=== PATIENT | female | born 1955 | race Caucasian/White ===

== ENCOUNTER → 2017-04-02 | Outpatient (CLI) | payer OTHER ==
[~2017-04-02] MED LIST: ASPI81TA21 PO; CALC600T14 PO; CHOL400C7 PO; CYAN10004 PO; LEVO100T PO; MULTTAB58 PO; PRAV20TA PO; TIMO0.2530 OPB
--- NOTE | 2017-04-03 14:31 | MAMMOGRAPHY REPORT ---
BILATERAL DIGITAL SCREENING MAMMOGRAM TOMOSYNTHESIS WITH CAD: 04/02/2017 CLINICAL HISTORY: Routine screening. Patient has no complaints. TECHNIQUE: Breast tomosynthesis in addition to standard 2D mammography was performed. Current study was also evaluated with a Computer Aided Detection (CAD) system. COMPARISON: Comparison is made to exams dated: 12/10/2015 mammogram, 12/05/2014 mammogram, 11/02/2013 m ammogram, 09/27/2012 mammogram, 09/26/2011 mammogram, and 09/25/2010 mammogram - [facility] nter. BREAST COMPOSITION: There are scattered areas of fibroglandular density in both breasts. FINDINGS: No suspicious masses, calcifications, or areas of architectural distortion are noted in ei ther breast. There has been no significant interval change compared to prior exams. Scattered bilater al benign-appearing calcifications are not significantly changed. Circumscribed benign-appearing mas s in the left central breast is stable. Other small circumscribed benign-appearing masses are noted bilaterally, best seen on the tomosynthesis images, which are considered benign given the multiplicit y and bilaterality and likely represent cysts. IMPRESSION: ACR BI-RADS CATEGORY 2: BENIGN There is no mammographic evidence of malignancy. A 1 year screening mammogram is recommended. The pa tient will receive written notification of the results. Approximately 10% of breast cancers are not detected with mammography. A negative mammographic report should not delay biopsy if a clinically suggestive mass is present. Mayte Lovell M.D. /:04/02/2017 15:47:21 [facility]: Sil SPEARS,R, M, [facility] letter sent: Normal 1/2 BI-RADS Code: ACR BI-RADS Category 2: Benign
== END | disposition home or self-care (01) ==
LOC: C.MAMM 14:53
PROVIDERS: ATTEND Family Medicine
DX: Z12.31 Encounter for screening mammogram for malignant neoplasm of breast (principal)

== ENCOUNTER 2019-09-21 05:02 | Inpatient (IN) ==
--- NOTE | 2019-09-15 10:28 | PAT Medication Instructions ---
Medication Instructions Date of Service September 15, 2019 Home Medications aspirin [Aspir-81] 81 mg PO QAM carbidopa-levodopa 1 tab PO BID coenzyme Q10 [CoQ-10] 100 mg PO UD PRN 0 dulaglutide [Trulicity] 1.5 mg SUBCUT WK gabapentin 200 mg PO BID lamotrigine 50 mg PO QAM latanoprost 1 drp OPHTHALMIC (EYE) BID levothyroxine 100 mcg PO QAM meloxicam [Mobic] 15 mg PO UD PRN metoprolol succinate 25 mg PO QAM propafenone 225 mg PO QAM rosuvastatin 5 mg PO HS Continue as directed dulaglutide [Trulicity] 1.5 mg SUBCUT WK ASK your surgeon for instructions meloxicam [Mobic] 15 mg PO UD PRN STOP taking 2 weeks before surgery (or as soon as possible if surgery is within 2 weeks) coenzyme Q10 [CoQ-10] 100 mg PO UD PRN 0 DO NOT take the morning of surgery lamotrigine 50 mg PO QAM Take morning of surgery With a small sip of water, OTHERWISE NOTHING TO EAT OR DRINK AFTER MIDNIGHT: aspirin [Aspir-81] 81 mg PO QAM carbidopa-levodopa 1 tab PO BID gabapentin 200 mg PO BID lamotrigine 50 mg PO QAM latanoprost 1 drp OPHTHALMIC (EYE) BID levothyroxine 100 mcg PO QAM metoprolol succinate 25 mg PO QAM propafenone 225 mg PO QAM Take evening before surgery carbidopa-levodopa 1 tab PO BID gabapentin 200 mg PO BID latanoprost 1 drp OPHTHALMIC (EYE) BID rosuvastatin 5 mg PO HS Other Notes If you have any questions please call us at [phone] or [phone] or [phone] or [phone]
--- NOTE | 2019-09-16 08:08 | History & Physical Report ---
Date of Service September 16, 2019 date of surgery: 09-21-19 Assessment & Plan (1) Arthritis of right knee: Further care discussed with patient and at this point in time she has failed conservative measures and would like to proceed with a Right total knee replacement. Plan on discharge will be home with home health physical therapy. DVT prophalaxis with TEDs, SCDs and will also place on aspirin 81 mg p.o. b.i.d. for a month postop. Patient will have follow up appointment in our office two w eeks post op for staple/suture removal and re-evaluation. Patient otherwise has no other questions or concerns. History of Present Illness Chief Complaint: Right knee pain Primary Care Provider: Donal Larson Ms Bowden is a 64 year old female who complains of Right knee pain, presents for pre-op evaluation prior to a Right total knee replacement by dr Gomez at [facility]. She complains of pain, crepitus, decreased range of motion, instability and stiffness in the Right knee. she states that the symptoms have been chronic and non-traumatic. she states that the symptoms occur constantly with intermittent worsening. Currently the patient states that the symptoms are moderate-severe. The pain is described as aching, sharp and throbbing. The symptoms occur continuously. The symptoms are aggravated by ascending stairs, daily activities, first steps while awake walking. Prior NSAIDs include IBU and Aleve. She has been treated with previous cortisone injections and visco injections in the past without much relief, most recent was Euflexxa in March 2019. Allergies Allergy/AdvReac Type Severity Reaction Status Date / Time Srmkbvc-Iel-Cnv Reductase AdvReac Unknown Joint Pain Verified 09/14/19 10:06 Inhibitor Home Medications Home Medications Medication Instructions Recorded Confirmed Type aspirin [Aspir-81] 81 mg PO QAM 09/14/19 09/14/19 History carbidopa-levodopa 1 tab PO BID 09/14/19 09/14/19 History coenzyme Q10 [CoQ-10] 100 mg PO UD PRN 09/14/19 09/14/19 History dulaglutide [Trulicity] 1.5 mg SUBCUT WK 09/14/19 09/14/19 History gabapentin 200 mg PO BID 09/14/19 09/14/19 History lamotrigine 50 mg PO QAM 09/14/19 09/14/19 History latanoprost 1 drp OPHTHALMIC (EYE) BID 09/14/19 09/14/19 History levothyroxine 100 mcg PO QAM 09/14/19 09/14/19 History meloxicam [Mobic] 15 mg PO UD PRN 09/14/19 09/14/19 History metoprolol succinate 25 mg PO QAM 09/14/19 09/14/19 History propafenone 225 mg PO QAM 09/14/19 09/14/19 History rosuvastatin 5 mg PO HS 09/14/19 09/14/19 History Past Med/Surg History Medical History Abnormal EEG Abnormal MRI Borderline high blood pressure Borderline high cholesterol Diabetes History of anesthesia reaction BP WENT LOW WITH ONE SURGERY IN PAST LEG CRAMPS AFTER SURGERY History of atrial fibrillation DX 2013 ...CARDIAC ABLATION Sleep apnea "MILD" - NO MACHINE Tremor L FOOT MOVES UP LEFT SIDE AT TIMES Surgical History History of cardiac radiofrequency ablation MAY 2014 - RESOLVED AFIB History of cholecystectomy History of colonoscopy History of neck surgery CAGE, LIMITED ROM BOTH SIDES (MILD) History of ovarian cystectomy History of surgery on arm L Family History Sister Family history of diabetes mellitus Social History Preferred Language: Nepali Communication Ability: Effective Communication Ability Comment: NEEDS READING GLASSES Paper Coater Required: No Beliefs That Will Affect Care: None Current Living Situation: Spouse Other Information That Helps Us Care for You: No Feels Safe at Home: Yes Smoking Status: Never smoker Do You Dip or Chew Tobacco: No ; Hx Alcohol Use: Yes Alcohol type: wine Hx Substance Use: No Review of Systems Review of Systems: All systems reviewed & are unremarkable except as noted in HPI & below Constitutional: no fever, no chills and no sweats Respiratory: no cough and no dyspnea Cardiovascular: no chest pain, no dyspnea and no orthopnea Gastrointestinal: no abdominal pain, no nausea and no vomiting Musculoskeletal: as per Subjective / HPI Physical Exam Physical Exam: Ht: 5'1" Wt: 78kg BP: 124/76 Pulse: 76 Constitutional: WD/WN, vitals as above no acute distress Respiratory: normal respiratory effort, lungs clear to auscultation no respiratory distress, no labored breathing and does not use accessory muscles Cardiovascular: RRR, no murmur, no edema Gastrointestinal (Abdomen): normal bowel sounds, soft, nontender, no hepatosplenomegaly Musculoskeletal: Knee: + knee abnormal to inspection (Right knee), + effusion (+1 effusion), + limited ROM of knee (ROM 0/3/110), + knee ROM with crepitation, + joint line tenderness (medial joint line) and + Ever's sign positive; no deformity, no skin erythema, no ecchymosis, no valgus laxity, no varus laxity, anterior drawer test negative, Aureliano's sign negative and pivot shift test negative Results & Data Diagnostic Findings right knee xray from December 2018 showing complete loss joint space medial compartment with overall varus alignment, there is also narrowing of the lateral compartment and patellofemoral joint. there is osteophyte formation, subchondral sclerosis noted, no loose bodies, no acute bony pathology. overall impression tricompartmental degenerative changes to the right knee.
--- NOTE | 2019-09-16 14:16 | Anesthesiology Consultation ---
Date of Service September 16, 2019 Assessment & Plan (1) Encounter for pre-operative examination: - Cardiology: 08/30/19: Stress test reviewed. "I see no cardiac contraindication to proceeding on with the right knee replacement. I would recommend perioperative cardiac monitoring." - PCP: 09/15/19: "Medical problems stable. Should tolerate surgery well. Patient cleared for planned surgery." Chart Review Chart Review: Acceptable Risk for Surgery and Patient seen in Pre Admission Testing Teaching & Discussion Pre-Anesthesia Teaching/Discussion Notes: Instructed NPO after midnight before surgery,except medications with 15 cc of water. Medication instructions provided according to the PAT guidelines. History Surgery Operation Date: 09/21/19 07:00 Proposed Procedures p Right Total Knee Arthroplasty - Link Gomez DO Height/Weight Height: 5 ft 1 in Weight: 82.5 kg Allergies Allergy/AdvReac Type Severity Reaction Status Date / Time Jikxxqf-Pgm-Cuq Reductase AdvReac Unknown Joint Pain Verified 09/14/19 10:06 Inhibitor Medications Home Medications Medication Instructions Recorded Confirmed Last Taken aspirin [Aspir-81] 81 mg PO QAM 09/14/19 09/14/19 Unknown carbidopa-levodopa 1 tab PO BID 09/14/19 09/14/19 Unknown coenzyme Q10 [CoQ-10] 100 mg PO UD PRN 09/14/19 09/14/19 Unknown dulaglutide [Trulicity] 1.5 mg SUBCUT WK 09/14/19 09/14/19 Unknown gabapentin 200 mg PO BID 09/14/19 09/14/19 Unknown lamotrigine 50 mg PO QAM 09/14/19 09/14/19 Unknown latanoprost 1 drp OPHTHALMIC (EYE) BID 09/14/19 09/14/19 Unknown levothyroxine 100 mcg PO QAM 09/14/19 09/14/19 Unknown meloxicam [Mobic] 15 mg PO UD PRN 09/14/19 09/14/19 Unknown metoprolol succinate 25 mg PO QAM 09/14/19 09/14/19 Unknown propafenone 225 mg PO QAM 09/14/19 09/14/19 Unknown rosuvastatin 5 mg PO HS 09/14/19 09/14/19 Unknown Past Medical History Medical History Borderline high blood pressure Borderline high cholesterol Diabetes History of atrial fibrillation s/p cardiac ablation (2013) Obesity Sleep apnea "mild"- no device recommended per patient Tremor Left foot/left sided (occasional) Exercise / Class Metabolic Activity III < 4 Walking/Shop/Light housework Past Family History Family History Sister Family history of diabetes mellitus Past Surgical History Surgical History History of cardiac radiofrequency ablation 2013 History of cholecystectomy History of colonoscopy History of neck surgery + CAGE History of ovarian cystectomy History of surgery on arm L Past Anesthesia History Other (single episode of post-op hypotension. Post-op leg cramps.) Social History Smoking Status: Never smoker Do You Dip or Chew Tobacco: No Hx Alcohol Use: Yes Alcohol type: wine alcohol intake frequency: holidays/special occasions only Hx Substance Use: No substance use type: does not use Review of Systems Patient denies chest pain, shortness of breath, cough, wheezing, palpitations. Physical Exam Vital Signs VITALS BP 122/79 P 75 TEMP 98.7 SP02 95%RA RESP 18 PHYSICAL Full neck and c-spine range of motion. Full TMJ range of motion. TMD 4 finger breaths Mallampati Score 3 Dentition: molar chipped, upper front caps Lungs: clear throughout to auscultation Cardiac: regular rate and rhythm, no murmurs noted Spine: normal Carotid arteries: negative bruit Extremities: no edema Testing Laboratory Results 09/16/19 14:32 09/16/19 14:32 PT 10.3 Seconds (9.0-12.0) 09/16/19 14:32 INR 1.0 (0.9-1.1) 09/16/19 14:32 APTT 25.1 Seconds (21.0-31.0) 09/16/19 14:32 Hemoglobin A1c 6.1 % (4.5-5.6) H 09/16/19 14:32 Urine Color Yellow 09/16/19 Unknown Urine Appearance Clear (Clear) 09/16/19 Unknown Urine pH 5.0 (4.5-7.5) 09/16/19 Unknown Ur Specific [place] 1.013 (1.000-1.030) 09/16/19 Unknown Urine Protein Negative (Negative) 09/16/19 Unknown Urine Glucose (UA) Negative (Negative) 09/16/19 Unknown Urine Ketones Negative (Negative) 09/16/19 Unknown Urine Nitrite Negative (Negative) 09/16/19 Unknown Ur Leukocyte Esterase Negative (Negative) 09/16/19 Unknown Blood Type B Negative 09/16/19 14:32 Antibody Screen NEGATIVE 09/16/19 14:32 Electrocardiogram Date: 09/16/19 SR with first degree AVB at 75bpm. Chest X-Ray Date: 09/16/19 Findings: + NAD Echocardiogram Date: 05/09/19 EF 55 to 60%. No regional wall motion abnormalities. Done sclerotic changes in aortic and mitral valve leaflets. Mild to at most low moderate aortic valve insufficiency. Mild mitral and tricuspid valvular insufficiency. Minimal to small amount pericardial fluid. PASP 30 mmHg. Somewhat limited study with a limited acoustic window. Stress Test Date: 08/30/19 Type: nuclear (Lexiscan) Normal myocardial perfusion SPECT images without evidence of pharmacologically induced ischemia. LVEF 60%. No significant ST-T wave changes associated with Lexiscan infusion.
--- NOTE | 2019-09-16 14:55 | XRay Report ---
XR chest Pre-admission PA/Lat CLINICAL HISTORY: Preoperative chest COMPARISON STUDY: No previous studies for comparison. FINDINGS: The cardiac and mediastinal contours are normal. There is no evidence of focal pulmonary co nsolidation. There is no evidence of failure. No pleural effusions are visualized.[Postsurgical mauricio es are present within the cervical spine. IMPRESSION: No active disease in the chest. ACT 112: Negative or not required by law. Electronically signed by: Jose Elias Tierney M.D. 09/16/2019 2:54 PM
[2019-09-16 15:33] LABS: Basophils # (auto) 0.02 K/uL (0-0.2); Basophils % (auto) 0.3 %; Eosinophils # (auto) 0.16 K/uL (0-0.5); Eosinophils % (auto) 2.2 %; Hematocrit (blood only) 42.1 % (37-47); Hemoglobin 14.3 g/dL (12.0-16.0); Immature Granulocytes # (auto) 0.01 K/uL (0.00-0.02); Immature Granulocytes % (auto) 0.1 %; Lymphocytes # (auto) 2.12 K/uL (1.2-3.4); Lymphocytes % (auto) 29.5 %; Mean Corpuscular Hemoglobin 30.4 pg (25-34); Mean Corpuscular Volume 89.4 fL (80-100); Mean Platelet Volume 9.8 fL (7.4-10.4); Monocytes # (auto) 0.74 K/uL (0.11-0.59); Monocytes % (auto) 10.3 %; Neutrophils # (auto) 4.14 K/uL (1.4-6.5); Neutrophils % (auto) 57.6 %; Platelet Count 273 K/uL (130-400); RDW Coefficient of Variation 13.1 % (11.5-14.5); RDW Standard Deviation 42.5 fL (36.4-46.3); Red Blood Count 4.71 M/uL (4.2-5.4); White Blood Count 7.19 K/uL (4.8-10.8)
[2019-09-16 15:34] LABS: Appearance Urine Clear (Clear); Bilirubin Urine Negative (Negative); Blood Urine Negative (Negative); Color Urine Yellow; Glucose Urine UA Negative (Negative); Ketones Urine Negative (Negative); Leukocyte Esterase Urine Negative (Negative); Nitrite Urine Negative (Negative); Protein Urine Negative (Negative); Specific Gravity Urine 1.013 (1.000-1.030); Urobilinogen Urine Negative (Negative)
[2019-09-16 15:39] LABS: Albumin Level 3.8 gm/dl (3.4-5.0); BUN Creatinine Ratio 21.1 (10-20); Creatinine Clr Calc Pharmacy 67.4 ml/min; Est GFR (Non-African American) 76.8; Potassium 4.2 mmol/L (3.5-5.1)
[2019-09-16 15:44] LABS: Partial Thromboplastin Ratio 0.9; Partial Thromboplastin Time 25.1 Seconds (21.0-31.0); Prothrombin Time 10.3 Seconds (9.0-12.0)
--- NOTE | 2019-09-16 17:28 | Electrocardiogram Report ---
Test Reason : Blood Pressure : / mmHG Vent. Rate : 075 BPM Atrial Rate : 075 BPM P-R Int : 210 ms QRS Dur : 080 ms QT Int : 382 ms P-R-T Axes : 067 042 059 degrees QTc Int : 426 ms Sinus rhythm with 1st degree A-V block Otherwise normal ECG When compared with ECG of 08-APR-2012 17:41, MT interval has increased Confirmed by Francisco Kerns ([id number]) on 09/16/2019 5:27:59 PM Referred By: Link Gomez Confirmed By:Mahamed Kerns
[2019-09-17 06:35] LABS: Estimated Average Glucose 128 mg/dl; Hemoglobin A1C 6.1 % (4.5-5.6)
[2019-09-21] MEDS ORDERED: TRANEXAMIC ACID 1,000 MG **IV Intra-op IV SCH (06:00)
[2019-09-21] MEDS ORDERED: METOCLOPRAMIDE HCL 10 MG TABLET PO SCH (06:00)
[2019-09-21] MEDS ORDERED: dexAMETHasone 4 MG TAB PO SCH (06:00)
[2019-09-21] MEDS ORDERED: LR 15ML/HR IV SCH (06:00)
[2019-09-21] MEDS ORDERED: ACETAMINOPHEN 500 MG TAB PO SCH (06:00)
[2019-09-21] MEDS ORDERED: GABAPENTIN 300 MG CAP PO SCH (06:00)
[2019-09-21] MEDS ORDERED: TRANEXAMIC ACID 1,000 MG **IV Pre-op IV SCH (06:00)
[2019-09-21] MEDS ORDERED: ROPIVACAINE 0.5% HCL/PF 150 MG, BUPIVACAINE 0.5% MPF 30 ML, EPINEPHrine 30MG/30ML (OR U... INSTIL SCH (06:00)
[2019-09-21] MEDS ORDERED: FAMOTIDINE 20 MG TAB PO SCH (06:00)
[2019-09-21] MEDS ORDERED: VANCOMYCIN HCL 1,250 MG in SODIUM CHLORIDE 0.9% 250 ML IV SCH (06:00)
[2019-09-21] MEDS ORDERED: CeleBREX 200 MG CAP PO SCH (06:00)
[2019-09-21] MEDS ORDERED: LR 500ML BOLUS, THEN 15ML/HR IV SCH (06:00)
[2019-09-21] MEDS ORDERED: BUPIVACAINE 0.5 % 5 MG/1 ML PF 10ML VIAL ONE (06:20)
[2019-09-21] MEDS ORDERED: DEXAMETHASONE SOD INJ 4 MG/ML VIAL ONE (06:20)
[2019-09-21] MEDS ORDERED: BUPIVACAINE/EPINEPHRINE 0.25% 1:200,000 30 ML VIAL ONE (06:20)
[2019-09-21] MEDS ORDERED: BACITRACIN INJ 50,000 UNIT VIAL ONE (06:28)
[2019-09-21] MEDS ORDERED: ORTHO JOINT ANESTHETIC ONE (06:28)
[2019-09-21] MEDS ORDERED: MIDAZOLAM HCL 1 MG/ML 2ML VIAL ONE ×2 (06:48→06:49)
[2019-09-21] MEDS ORDERED: fentaNYL citrate 100 MCG/2 ML VIAL ONE (06:52)
[2019-09-21] MEDS ORDERED: ePHEDrine sulfate 50 MG/ML AMP IV PRN (06:53)
[2019-09-21] MEDS ORDERED: ATROPINE SULFATE 0.1 MG/ML 10ML SYR IV PRN (06:53)
[2019-09-21] MEDS ORDERED: ONDANSETRON INJ 2 MG/ML 2 ML VIAL IV PRN ×2 (06:53→09:52)
[2019-09-21] MEDS ORDERED: fentaNYL citrate 100 MCG/2 ML VIAL IV PRN (06:53)
--- NOTE | 2019-09-21 07:01 | History & Physical Bridge Note ---
Date of Service September 21, 2019 History & Physical Bridge Note I have examined the patient, reviewed the History & Physical and in the interval since the performance of the History & Physical I have noted the following changes of clinical significance: no changes noted
[2019-09-21] MEDS ORDERED: LIDOCAINE HCL 2% 2 ML VIAL/AMP(20MG/ML) INFIL ONE (07:29)
[2019-09-21] MEDS ORDERED: ONDANSETRON INJ 2 MG/ML 2 ML VIAL ONE (07:29)
[2019-09-21] MEDS ORDERED: PROPOFOL IV EMULSION 10 MG/ML 20 ML VIAL IV ONE (07:29)
--- NOTE | 2019-09-21 08:12 | Operative Report ---
Post Operative Report Pre & Post Diagnosis Operation Date: 09/21/19 07:00 Pre-Op Diagnosis: Right Knee Osteoarthritis Post-Op Diagnosis: Right Knee Osteoarthritis I identified the patient and participated in the time-out.: Yes Procedure Operation Date: 09/21/19 07:00 Actual Procedures p Right Total Knee Arthroplasty, Cemented(Right) utilizing [employer] journey to non-block total knee arthroplasty size 3 femur to tibia 9 polyethylene 29 oval patella- Link Gomez DO Surgeon Link Gomez DO Dehydrator Operator MELISSA Botello Estimated Blood Loss 5 Findings Consistent with Post-Op Diagnosis Patient has severe end-stage tricompartmental degenerative joint disease varus alignment 10 degree flexion contracture subchondral cystic changes marginal osteophytes moderate to large effusion no response to conservative management Specimens Bone and cartilage Drains Medium bore Hemovac Anesthesia Type MAC Regional Complications none Disposition Accompanied Patient To Recovery: No Disposition: Recovery Room Indications Patient presents after failed attempted conservative management clinic physical therapy anti-inflammatories relative rest activity modification corticosteroid injections Visco supplementation as above intraoperative findings noted times surgery. Description of Procedure After proper prepping and draping of the Right lower extremity anterior midline incision was made over the region of the extensor extensor mechanism after meticulous hemostasis was obtained and maintained in subcutaneous tissues a medial parapatellar incision was made The patella was subluxed lateralward the medial lateral gutter were cleaned from any hypertrophic synovitis and scar tissue of the distal femoral block was placed and the distal femoral osteotomy cut was made subsequently the chamfers anterior and posterior osteotomy cuts were made utilizing the 4-in-1 block the tibia was subsequently subluxed anteriorward medial and ateral meniscal remnants were excised in their entirety remnants of the anterior and posterior cruciate ligaments were excised in their entirety excellent exposure of the proximal tibia was obtained the tibial osteotomy guide was placed on the proximal tibial osteotomy cut was made once again the knee was irrigated with copious amounts of sterile saline solution the patella was subsequently everted lateralward thickened scar tissue around the patella was removed the patella was subsequently cut utilizing a freehand technique and was drilled prepared for final preparation and placement of patella socially flexion-extension gaps were checked and the equal and symmetric trials were placed to the appropriate femoral and tibial trials with poly-spacer being placed for equal flexion and extension gaps and full range of motion including extension to 0 and flexion to 140 the trial components after having been taken to recovery range of motion was subsequently removed meticulous hemostasis was obtained and maintained subsequently a knee block injection of joint cocktail including ropivacaine 0.5% 150 mg. Bupivacaine 0.5% epinephrine 1-200,030 mL's toradol 30 mg dexamethasone 4 mg ketamine 10 mg clonidine 100 micrograms normal saline solution 30 mg was infiltrated into the soft tissues of the posterior knee medial lateral gutters and periosteal synovium special attention was paid to protect neurovascular structures at all times subsequently trial components having been removed the knee was irrigated with sterile saline solution. debris was removed the proximal tibia was subsequently prepared and was made ready for the placement of the tibial component tibial component was also cemented and tamped into position the femoral component was subsequently placed and cemented in the position the patellar component was subsequently cemented in position because hemostasis once again obtained and maintained wound having been thoroughly irrigated with debridement and debridement lavage was performed as well as a medial parapatellar incision closed with #1 Vicryl in interrupted fashion subcutaneous was closed with #2 Vicryl skin was closed with skin clips. PA-C was necessary for prepping and drapping as well as wound closure of deep fascia Sub cutaneous tissue and skin and was necessary for the case. A sterile compressive dressing was placed patient was taken to recovery in stable condition of report dictated by Jason I attest to the content of the Intraoperative Record and any orders documented therein. Any exceptions are noted below. I attest to the content of the Intraoperative Record and any orders documented therein. Any exceptions are noted below.
--- NOTE | 2019-09-21 09:16 | Anesthesiology Progress Note ---
Date of Service September 21, 2019 Anesthesia Post Procedure Vital Signs Vital Signs: Temp Pulse Pulse Resp BP Pulse Ox 09/21/19 09:10 73 19 114/64 97 09/21/19 09:00 72 17 106/56 L 97 09/21/19 08:51 36 C L 79 16 106/66 100 09/21/19 05:54 36.7 C 68 18 146/74 H 95 Pain Intensity Right Knee: Pain Intensity: 3 Transfer of Care Handoff Completed per policy Notes Mental Status: alert / awake / arousable Patient Amnestic to Procedure: Yes Nausea / Vomiting: adequately controlled Pain: adequately controlled Airway Patency, RR, SpO2: stable & adequate BP & HR: stable & adequate Hydration State: stable & adequate Neuraxial Anesthesia: was administered and sensory block is resolving Anesthetic Complications: no major complications apparent
--- NOTE | 2019-09-21 09:42 | XRay Report ---
XR knee RT 1 or 2V routine HISTORY: 64 years-old Female Surgical Post Op right knee total joint arthroplasty. COMPARISON: None available TECHNIQUE: 2 views of the right knee FINDINGS: Right knee total joint arthroplasty and patella resurfacing demonstrates satisfactory alignment. Surg ical drainage catheter is in place. Postoperative swelling and deep tissue air. No acute fracture or opaque foreign body. IMPRESSION: Right knee total joint arthroplasty with expected postoperative findings. ACT 112: Negative or not required by law. The above report was generated using voice recognition software. It may contain grammatical, syntax o r spelling errors. Electronically signed by: Emiliano Davis M.D. 09/21/2019 9:40 AM
[2019-09-21] MEDS ORDERED: bisacodyL 10 MG SUPP PR PRN (09:52)
[2019-09-21] MEDS ORDERED: METOCLOPRAMIDE HCL INJ 5 MG/ML 2 ML VIAL IV PRN (09:52)
[2019-09-21] MEDS ORDERED: MAGNESIUM HYDROXIDE SUSP 30 ML UDC PO PRN (09:52)
[2019-09-21] MEDS ORDERED: NALOXONE HCL 0.4 MG/1 ML VIAL/CARP IV PRN (09:52)
[2019-09-21] MEDS ORDERED: HYDROmorphone INJ 1 MG/ML SYRINGE IV PRN (09:52)
[2019-09-21] MEDS ORDERED: PHARMACY GLYCEMIC MGMT CONSULT PRN (10:15)
[2019-09-21] MEDS ORDERED: GLUCAGON FOR INJ 1 MG VIAL IM PRN (10:30)
[2019-09-21] MEDS ORDERED: GLUCOSE 10 TABS/TUBE PO PRN (10:30)
[2019-09-21] MEDS ORDERED: CARBOHYDRATES FOR HYPOGLYCEMIA PO PRN (10:30)
[2019-09-21] MEDS ORDERED: DEXTROSE 50% 50 ML SYRINGE IV PRN (10:30)
[2019-09-21] MEDS ORDERED: GLUCOSE 40% GEL 15 GM TUBE PO PRN (10:30)
--- NOTE | 2019-09-21 10:35 | Pharmacy Report ---
Glycemic Control Consultation - Date of Service September 21, 2019 - Scope Scope: Glycemic Pharmacist consulted by Henry Diane on 09/21 for glycemic control and to write orders per [facility] inpatient glycemic control protocol - Objective Weight: 81.76 kg Accuchecks BSG (last 24hrs): 09/21/19 05:48 POC Glucose 138 H HbA1c: Hemoglobin A1c 6.1 % (4.5-5.6) H 09/16/19 14:32 - Recent Pertinent Medications Outpatient Anti-diabetic Regimen: * trulicity 1.5 mg qweekly * A1c = 6.1 % 09/16/19 Risk Factors for Insulin Resistance: * Steroids: DXM 4 mg iv, DXM 8 mg po x 1 * Recent Surgery: POD 0 * Diet: T2DM - Assessment & Plan Assessment & Plan: ASSESSMENT: * 64 year old female now s/p knee arthroplasty. Type 2 diabetic managed on Trulicity at home * Pharmacy consulted for glycemic management. Patient did receive steroids preop/intraop therefore expect steroid induced hyperglycemia * Will utilize basal/bolus insulin postop for glycemic control * Lunch BSG elevated at 284 mg/dL - after discussion with nurse patient had just recently eaten breakfast therefore level falsely elevated / patient did eat about 26 gm of carbs therefore adjusted CF slightly to make up for missed insulin PLAN FOR INPATIENT GLYCEMIC CONTROL: * Holding outpatient diabetes medications * Basal insulin * NPH 15 units (~0.2 units/kg) x 1 * Bolus insulin * NovoLog per scale ACHS or Q6hrs while NPO * Goal Range: Low 110 mg/dL - High 140 mg/dL * Correction Factor: 25 mg/dL/unit * Nutritional / Prandial insulin per carb ratio of 1 unit per 8 grams CHO consumed * Please note that the plan above was derived based on current level of insulin resistance and hospital stress. These recommendations are appropriate for inpatient admission only. Plan of care upon discharge will need to be reassessed to avoid potential outpatient hypo/hyperglycemia. Thank you.
[2019-09-21] MEDS: SODIUM CHLORIDE 0.9% 1000ML 1,000 ML IV SCH ×2 (10:53→21:04)
[2019-09-21] MEDS: GABAPENTIN 100 MG CAP PO SCH ×2 (10:53→21:09)
[2019-09-21] MEDS: CARBIDOPA/LEVODOPA 25/100MG EXT REL TAB PO SCH ×2 (10:54→21:09)
[2019-09-21] MEDS: LATANOPROST 0.005% OP SOLN 2.5 ML BTL OP SCH ×2 (10:54→21:12)
[2019-09-21] MEDS: MULTIVITAMIN TAB PO SCH (10:56)
[2019-09-21] MEDS: PROPAFENONE HCL 150 MG TABLET PO SCH (10:57)
[2019-09-21] MEDS: LEVOTHYROXINE SODIUM 100 MCG TABLET PO SCH (10:57)
[2019-09-21] MEDS: METOPROLOL SUCC 25MG EXT REL TAB PO SCH (10:57)
[2019-09-21] MEDS: KETOROLAC TROMETHAMINE 15 MG/ML VIAL IV SCH ×3 (12:22→23:44)
[2019-09-21] MEDS ORDERED: NovoLIN-N (NPH) PER UNIT CHARGE SQ STA (13:07)
[2019-09-21] MEDS: ACETAMINOPHEN 500 MG TAB PO SCH ×2 (13:32→21:09)
[2019-09-21] MEDS: INSULIN ASPART 100 UNITS/ML 3 ML PEN SC SCH ×4 (13:34→23:43)
[2019-09-21] MEDS: CEFAZOLIN 2000MG 2,000 MG/15 ML SYR IV SCH (17:47)
[2019-09-21] MEDS: SENNA 8.6 MG TAB PO SCH (21:09)
[2019-09-21] MEDS: DOCUSATE SODIUM 100 MG CAP PO SCH (21:09)
[2019-09-21] MEDS: ROSUVASTATIN CALCIUM 5 MG TAB PO SCH (21:09)
[2019-09-21] MEDS: ASPIRIN 81 MG ECTAB PO SCH (21:09)
[2019-09-22] MEDS: CEFAZOLIN 2000MG 2,000 MG/15 ML SYR IV SCH (03:00)
[2019-09-22] MEDS: INSULIN ASPART 100 UNITS/ML 3 ML PEN SC SCH ×5 (03:03→20:57)
[2019-09-22 05:57] LABS: Hematocrit (blood only) 34.5 % (37-47); Mean Corpuscular Hemoglobin 30.6 pg (25-34); Mean Corpuscular Hgb Conc 34.8 g/dL (32-36); Mean Platelet Volume 9.7 fL (7.4-10.4); Platelet Count 221 K/uL (130-400); RDW Coefficient of Variation 13.2 % (11.5-14.5); RDW Standard Deviation 42.1 fL (36.4-46.3); Red Blood Count 3.92 M/uL (4.2-5.4); White Blood Count 15.42 K/uL (4.8-10.8)
[2019-09-22] MEDS: KETOROLAC TROMETHAMINE 15 MG/ML VIAL IV SCH (06:12)
[2019-09-22] MEDS: ACETAMINOPHEN 500 MG TAB PO SCH ×3 (06:12→21:20)
[2019-09-22] MEDS: LEVOTHYROXINE SODIUM 100 MCG TABLET PO SCH (06:12)
[2019-09-22] MEDS: SODIUM CHLORIDE 0.9% 1000ML 1,000 ML IV SCH (06:13)
[2019-09-22 06:35] LABS: BUN Creatinine Ratio 24.1 (10-20); Calcium 8.8 mg/dl (8.5-10.1); Creatinine Clr Calc Pharmacy 64.6 ml/min; Est GFR (African American) 85.2; Est GFR (Non-African American) 73.5; Potassium 4.1 mmol/L (3.5-5.1)
--- NOTE | 2019-09-22 06:57 | Orthopedic Progress Note ---
Date of Service September 22, 2019 Assessment & Plan (1) History of total right knee replacement: POD #1 s/p Right TKA pt/ot dvt proph with ELIS/SCD/ASA plan for d/c home with home health when stable Subjective POD #1 s/p Right TKA Review of Systems Constitutional: no fever, no chills and no sweats Respiratory: no cough and no dyspnea Cardiovascular: no chest pain and no dyspnea Gastrointestinal: no abdominal pain, no nausea and no vomiting Physical Exam Physical Exam: Vital Signs Temp Pulse Pulse Pulse Resp BP Pulse Ox 09/22/19 03:10 36.8 C 78 18 172/78 H 94 09/21/19 23:09 36.5 C 74 18 144/74 H 95 09/21/19 19:43 36.8 C 77 18 142/78 H 94 09/21/19 15:18 36.6 C 71 18 151/85 H 94 09/21/19 12:30 68 18 127/81 96 09/21/19 11:30 65 18 118/72 96 09/21/19 10:38 69 18 135/76 96 09/21/19 10:07 66 18 146/86 H 94 09/21/19 09:20 36.5 C 72 69 16 121/75 94 09/21/19 09:10 73 19 114/64 97 09/21/19 09:00 72 17 106/56 L 97 09/21/19 08:51 36 C L 79 16 106/66 100 Intake and Output 09/21/19 09/21/19 09/22/19 14:59 22:59 06:59 Intake Total 2438.333 / 4650.00 0 996.667 / 4650.000 1215 / 4650.000 Output Total 35 0 950 / 2060 1075 / 2060 Balance 2403.333 / 2590.00 0 46.667 / 2590.000 140 / 2590.000 Intake: IV 1478.333 / 3090.00 0 696.667 / 3090.000 915 / 3090.000 Lr 1,000 ml @ 15 mls/hr IV . 700 / 700 Q24H STEPHAN Rx#:[id number] Nss 1000ML 1,0 00 ml @ 100 mls/ 303.333 / 1915.000 696.667 / 1915.000 915 / 1915.000 hr IV .Q10H SC H Rx#:[id number] TRANEXAMIC ACI D / 0.7% NACL 1, 200 / 200 000 mg In 100 ml @ 600 mls/hr IV TODAY@0600 [facility] Rx#:[id number] Vancomycin HCl 1,250 mg In Nss 275 / 275 250 ml @ 250 m ls/hr IV PREOP [facility] Rx#:[id number] IV Perioperative 600 / 600 Oral 360 / 960 300 / 960 300 / 960 Output: Urine 825 / 1775 950 / 1775 Estimated Blood Loss 5 / 5 Drain Output 30 / 280 125 / 280 125 / 280 Right Knee Hem ovac 30 / 280 125 / 280 125 / 280 Constitutional: WD/WN, vitals as above no acute distress Musculoskeletal: Right Leg: NVDI, calf SNT, negative tripp sign. DP palpable, able to wiggle toes/ankle movement without difficulty. dressing clean dry and intact. Results & Data ([facility]) Vital Signs (Past 12 Hours) Vital Signs Temp Pulse Resp BP Pulse Ox 09/22/19 03:10 36.8 C 78 18 172/78 H 94 09/21/19 23:09 36.5 C 74 18 144/74 H 95 09/21/19 19:43 36.8 C 77 18 142/78 H 94 Laboratory Results Laboratory Results WBC 15.42 K/uL (4.8-10.8) H 09/22/19 05:41 RBC 3.92 M/uL (4.2-5.4) L 09/22/19 05:41 Hgb 12.0 g/dL (12.0-16.0) 09/22/19 05:41 Hct 34.5 % (37-47) L 09/22/19 05:41 MCV 88.0 fL (80-100) 09/22/19 05:41 MCH 30.6 pg (25-34) 09/22/19 05:41 MCHC 34.8 g/dL (32-36) 09/22/19 05:41 RDW Std Deviation 42.1 fL (36.4-46.3) 09/22/19 05:41 RDW Coeff of Geni 13.2 % (11.5-14.5) 09/22/19 05:41 Plt Count 221 K/uL (130-400) 09/22/19 05:41 MPV 9.7 fL (7.4-10.4) 09/22/19 05:41 Immature Gran % (Auto) 0.1 % 09/16/19 14:32 Neut % (Auto) 57.6 % 09/16/19 14:32 Lymph % (Auto) 29.5 % 09/16/19 14:32 [place] % (Auto) 10.3 % 09/16/19 14:32 Eos % (Auto) 2.2 % 09/16/19 14:32 Baso % (Auto) 0.3 % 09/16/19 14:32 Immature Gran # (Auto) 0.01 K/uL (0.00-0.02) 09/16/19 14:32 Neut # (Auto) 4.14 K/uL (1.4-6.5) 09/16/19 14:32 Lymph # (Auto) 2.12 K/uL (1.2-3.4) 09/16/19 14:32 [place] # (Auto) 0.74 K/uL (0.11-0.59) H 09/16/19 14:32 Eos # (Auto) 0.16 K/uL (0-0.5) 09/16/19 14:32 Baso # (Auto) 0.02 K/uL (0-0.2) 09/16/19 14:32 PT 10.3 Seconds (9.0-12.0) 09/16/19 14:32 INR 1.0 (0.9-1.1) 09/16/19 14:32 APTT 25.1 Seconds (21.0-31.0) 09/16/19 14:32 PTT Ratio 0.9 09/16/19 14:32 Sodium 140 mmol/L (136-145) 09/22/19 05:41 Potassium 4.1 mmol/L (3.5-5.1) 09/22/19 05:41 Chloride 110 mmol/L (98-107) H 09/22/19 05:41 Carbon Dioxide 25 mmol/L (21-32) 09/22/19 05:41 Anion Gap 5.0 (3-11) 09/22/19 05:41 BUN 20 mg/dl (7-18) H 09/22/19 05:41 Creatinine 0.83 mg/dl (0.6-1.2) 09/22/19 05:41 Est Cr Clr Drug Dosing 64.6 ml/min 09/22/19 05:41 Est GFR ( Amer) 85.2 09/22/19 05:41 Est GFR (Non-Af Amer) 73.5 09/22/19 05:41 BUN/Creatinine Ratio 24.1 (10-20) H 09/22/19 05:41 Glucose 184 mg/dl (70-99) H 09/22/19 05:41 POC Glucose 185 mg/dl (70-99) H 09/22/19 03:02 Estimat Average Glucose 128 mg/dl 09/16/19 14:32 Hemoglobin A1c 6.1 % (4.5-5.6) H 09/16/19 14:32 Calcium 8.8 mg/dl (8.5-10.1) 09/22/19 05:41 Albumin 3.8 gm/dl (3.4-5.0) 09/16/19 14:32 Urine Color Yellow 09/16/19 Unknown Urine Appearance Clear (Clear) 09/16/19 Unknown Urine pH 5.0 (4.5-7.5) 09/16/19 Unknown Ur Specific [place] 1.013 (1.000-1.030) 09/16/19 Unknown Urine Protein Negative (Negative) 09/16/19 Unknown Urine Glucose (UA) Negative (Negative) 09/16/19 Unknown Urine Ketones Negative (Negative) 09/16/19 Unknown Urine Blood Negative (Negative) 09/16/19 Unknown Urine Nitrite Negative (Negative) 09/16/19 Unknown Urine Bilirubin Negative (Negative) 09/16/19 Unknown Urine Urobilinogen Negative (Negative) 09/16/19 Unknown Ur Leukocyte Esterase Negative (Negative) 09/16/19 Unknown Blood Type B Negative 09/16/19 14:32 Antibody Screen NEGATIVE 09/16/19 14:32 Diagnostic Findings XR knee RT 1 or 2V routine HISTORY: 64 years-old Female Surgical Post Op right knee total joint arthroplasty. COMPARISON: None available TECHNIQUE: 2 views of the right knee FINDINGS: Right knee total joint arthroplasty and patella resurfacing demonstrates satisfactory alignment. Surgical drainage catheter is in place. Postoperative swelling and deep tissue air. No acute fracture or opaque foreign body. IMPRESSION: Right knee total joint arthroplasty with expected postoperative findings.
[2019-09-22] MEDS: METOPROLOL SUCC 25MG EXT REL TAB PO SCH (07:28)
[2019-09-22] MEDS: PROPAFENONE HCL 150 MG TABLET PO SCH (07:29)
--- NOTE | 2019-09-22 08:24 | Anesthesiology Progress Note ---
Date of Service September 22, 2019 Anesthesia Post Procedure Vital Signs Vital Signs: Temp Pulse Pulse Pulse Resp BP Pulse Ox 09/22/19 08:22 36.8 C 73 18 181/79 H 96 09/22/19 03:10 36.8 C 78 18 172/78 H 94 09/21/19 23:09 36.5 C 74 18 144/74 H 95 09/21/19 19:43 36.8 C 77 18 142/78 H 94 09/21/19 15:18 36.6 C 71 18 151/85 H 94 09/21/19 12:30 68 18 127/81 96 09/21/19 11:30 65 18 118/72 96 09/21/19 10:38 69 18 135/76 96 09/21/19 10:07 66 18 146/86 H 94 09/21/19 09:20 36.5 C 72 69 16 121/75 94 09/21/19 09:10 73 19 114/64 97 09/21/19 09:00 72 17 106/56 L 97 09/21/19 08:51 36 C L 79 16 106/66 100 Pain Intensity Right Knee: Pain Intensity: 0 Notes Mental Status: alert / awake / arousable and participated in evaluation Patient Amnestic to Procedure: Yes Nausea / Vomiting: adequately controlled Pain: adequately controlled Airway Patency, RR, SpO2: stable & adequate BP & HR: stable & adequate Hydration State: stable & adequate Neuraxial Anesthesia: was administered and sensory block resolved Anesthetic Complications: no major complications apparent and Pt Satisfied with anesthetic care
[2019-09-22] MEDS: CARBIDOPA/LEVODOPA 25/100MG EXT REL TAB PO SCH ×2 (08:46→20:55)
[2019-09-22] MEDS: DOCUSATE SODIUM 100 MG CAP PO SCH ×2 (08:47→20:55)
[2019-09-22] MEDS: GABAPENTIN 100 MG CAP PO SCH ×2 (08:47→20:55)
[2019-09-22] MEDS: MULTIVITAMIN TAB PO SCH (08:47)
[2019-09-22] MEDS: LATANOPROST 0.005% OP SOLN 2.5 ML BTL OP SCH ×2 (08:47→20:52)
[2019-09-22] MEDS: ASPIRIN 81 MG ECTAB PO SCH ×2 (08:47→20:55)
[2019-09-22] MEDS ORDERED: HydrALAZINE HCL 20 MG/ML VIAL IV PRN (11:16)
--- NOTE | 2019-09-22 11:26 | Consultation ---
Date of Consultation September 22, 2019 Assessment & Plan (1) HTN (hypertension): continue Metoprolol typically pressures are better controlled certainly pain could be contributing use Hydralazine PRN would not add any new medications at this time follow up with PCP in the office for BP check (2) Diabetes: continue Novolog SS diabetic diet resume home regimen on discharge (3) History of atrial fibrillation: continue metoprolol and propafenone (4) Arthritis of right knee: s/p right TKA (5) History of total right knee replacement: pain control, DVT prophylaxis activity and d/c planning per ortho morning labs today show stable Hb and stable Cr. History of Present Illness Requesting Physician: Dr. Gomez Reason for Consultation: medical management of hypertension Attending Physician: Link Gomez, History of Present Illness 64 yo female with history of HTN, DM type II, remote h/o atrial fibrillation s/p ablation, presents for elective right TKA. Patient doing well, pain is minimal. She is ambulating with therapy, eating well. No chest pain, no dyspnea, no cough, no fever, no nausea. We are asked to see her for repeatedly elevated blood pressures. She says her blood pressure is always in a normal range in the office. She is compliant with her metoprolol and she is receiving it here in the hospital. She denies any severe pain in the knee or anxiety as reasons the pressures could be elevated. She denies any history of white coat hypertension. She does not have any headache or other symptoms. She reports that her diabetes is well controlled. She was started on Trulicity one year ago and her HbA1c is 6.4%. Allergies Allergy/AdvReac Type Severity Reaction Status Date / Time [id number] Reductase AdvReac Unknown Joint Pain Verified 09/21/19 05:33 Inhibitor Home Medications Home Medications Medication Instructions Recorded Confirmed Type aspirin [Aspir-81] 81 mg PO QAM 09/14/19 09/21/19 History carbidopa-levodopa 1 tab PO BID 09/14/19 09/21/19 History coenzyme Q10 [CoQ-10] 100 mg PO UD PRN 09/14/19 09/21/19 History dulaglutide [Trulicity] 1.5 mg SUBCUT WK 09/14/19 09/21/19 History gabapentin 200 mg PO BID 09/14/19 09/21/19 History lamotrigine 50 mg PO QAM 09/14/19 09/21/19 History latanoprost 1 drp OPHTHALMIC (EYE) BID 09/14/19 09/21/19 History levothyroxine 100 mcg PO QAM 09/14/19 09/21/19 History meloxicam [Mobic] 15 mg PO UD PRN 09/14/19 09/21/19 History metoprolol succinate 25 mg PO QAM 09/14/19 09/21/19 History propafenone 225 mg PO QAM 09/14/19 09/21/19 History rosuvastatin 5 mg PO HS 09/14/19 09/21/19 History Patient History Medical History Borderline high blood pressure Borderline high cholesterol Diabetes History of atrial fibrillation s/p cardiac ablation (2013) Obesity Sleep apnea "mild"- no device recommended per patient Tremor Left foot/left sided (occasional) Surgical History History of cardiac radiofrequency ablation 2013 History of cholecystectomy History of colonoscopy History of neck surgery + CAGE History of ovarian cystectomy History of surgery on arm L Family History Sister Family history of diabetes mellitus Social History Preferred Language: Mexican Communication Ability: Effective Communication Ability Comment: NEEDS READING GLASSES Bag Liner Required: No Beliefs That Will Affect Care: None marital status: Current Living Situation: Spouse Other Information That Helps Us Care for You: No Feels Safe at Home: Yes Smoking Status: Never smoker Do You Dip or Chew Tobacco: No ; Hx Alcohol Use: Yes Alcohol type: wine Hx Substance Use: No Review of Systems Review of Systems: All systems reviewed & are unremarkable except as noted in HPI & below Constitutional: no fever, no sweats, no fatigue and no weakness Respiratory: no cough and no dyspnea Cardiovascular: no chest pain, no dyspnea, no dyspnea on exertion, no palpitations, no syncope and no edema Gastrointestinal: no abdominal pain, no nausea, no vomiting, no constipation and no diarrhea/loose stools Genitourinary: no dysuria and no difficulty urinating Musculoskeletal: + joint pain (right knee, mild); no back pain, no neck pain and no myalgia Physical Exam Constitutional: WD/WN, vitals as above Eyes: PERRL, conjunctivae normal, anicteric sclerae ENMT: external ear and nose normal, oropharynx normal Neck: trachea midline, no thyromegaly Respiratory: normal respiratory effort, lungs clear to auscultation Cardiovascular: RRR, no murmur, no edema Gastrointestinal (Abdomen): normal bowel sounds, soft, nontender, no hepatosplenomegaly Musculoskeletal: Head/Neck/Chest: normocephalic and head atraumatic Extremities: + limited ROM of extremities (right knee) and strength 5/5 throughout; + extremities abnormal to inspection (right knee swollen, tender, wrapped) Skin: no rashes, warm and dry Neurologic: patellar DTR's 2+ bilat, sensation intact and PERRL, EOMI, accommodation nl, no face palsy, no dysarthria Psychiatric: A+Ox3, euthymic affect Lymphatic: no cervical or axillary lymphadenopathy Results & Data Vital Signs (Past 12 Hours) Vital Signs Temp Pulse Pulse Resp BP BP Pulse Ox 09/22/19 09:48 72 180/92 H 09/22/19 07:15 36.8 C 73 18 181/92 H 181/79 H 96 09/22/19 03:10 36.8 C 78 18 172/78 H 94 Laboratory Results Laboratory Results - last 24 hr 09/21/19 09/22/19 09/22/19 23:42 03:02 05:41 WBC 15.42 H RBC 3.92 L Hgb 12.0 Hct 34.5 L MCV 88.0 MCH 30.6 MCHC 34.8 RDW Std Deviation 42.1 RDW Coeff of Geni 13.2 Plt Count 221 MPV 9.7 Sodium Potassium Chloride Carbon Dioxide Anion Gap BUN Creatinine Est Cr Clr Drug Dosing Est GFR ( Amer) Est GFR (Non-Af Amer) BUN/Creatinine Ratio Glucose POC Glucose 210 H 185 H Calcium Hepatitis C Ab Screen 09/22/19 09/22/19 09/22/19 05:41 05:41 08:29 WBC RBC Hgb Hct MCV MCH MCHC RDW Std Deviation RDW Coeff of Geni Plt Count MPV Sodium 140 Potassium 4.1 Chloride 110 H Carbon Dioxide 25 Anion Gap 5.0 BUN 20 H Creatinine 0.83 Est Cr Clr Drug Dosing 64.6 Est GFR ( Amer) 85.2 Est GFR (Non-Af Amer) 73.5 BUN/Creatinine Ratio 24.1 H Glucose 184 H POC Glucose 161 H Calcium 8.8 Hepatitis C Ab Screen Neg 09/22/19 09/22/19 09/22/19 12:12 16:58 20:42 WBC RBC Hgb Hct MCV MCH MCHC RDW Std Deviation RDW Coeff of Geni Plt Count MPV Sodium Potassium Chloride Carbon Dioxide Anion Gap BUN Creatinine Est Cr Clr Drug Dosing Est GFR ( Amer) Est GFR (Non-Af Amer) BUN/Creatinine Ratio Glucose POC Glucose 207 H 136 H 172 H Calcium Hepatitis C Ab Screen Medications Administered Current Inpatient Medications Acetaminophen (Tylenol) 1,000 mg PO Q8 [facility] Stop: 10/21/19 13:59 Last Admin: 09/22/19 21:20 Dose: 1,000 mg Documented by: Aspirin (Ecotrin Ectab) 81 mg PO BID STEPHAN Stop: 10/21/19 20:59 Last Admin: 09/22/19 20:55 Dose: 81 mg Documented by: Bisacodyl (Dulcolax) 10 mg NM DAILY PRN PRN Reason: Constipation Stop: 10/21/19 09:51 Carbidopa/Levodopa (Sinement Cr 25/100mg) 1 tab PO BID STEPHAN Stop: 10/21/19 09:59 Last Admin: 09/22/19 20:55 Dose: 1 tab Documented by: Celecoxib (Celebrex) 200 mg PO BID STEPHAN Stop: 10/22/19 20:59 Last Admin: 09/22/19 19:36 Dose: Not Given Documented by: Dextrose (Dextrose 50%) 25 - 50 ml IV UD PRN; Protocol PRN Reason: Hypoglycemia Protocol Stop: 10/21/19 10:29 Diphenhydramine HCl (Benadryl Capsule) 25 mg PO Q8H PRN PRN Reason: Itching Stop: 10/21/19 09:51 Docusate Sodium (Colace) 100 mg PO BID STEPHAN Stop: 10/21/19 20:59 Last Admin: 09/22/19 20:55 Dose: 100 mg Documented by: Gabapentin (Neurontin) 200 mg PO BID STEPHAN Stop: 10/21/19 09:59 Last Admin: 09/22/19 20:55 Dose: 200 mg Documented by: Glucagon (Glucagen) 1 mg IM UD PRN; Protocol PRN Reason: Hypoglycemia Protocol Stop: 10/21/19 10:29 Glucose (Glucose 40%) 15 - 30 gm PO UD PRN; Protocol PRN Reason: Hypoglycemia Protocol Stop: 10/21/19 10:29 Glucose (Dex4 Glucose) 4 - 8 tabs PO UD PRN; Protocol PRN Reason: Hypoglycemia Protocol Stop: 10/21/19 10:29 Hydralazine HCl (Hydralazine Hcl) 10 mg IV Q6 PRN PRN Reason: Blood Pressure - High Stop: 10/22/19 11:15 Hydromorphone HCl (Dilaudid) 1 mg IV Q4H PRN PRN Reason: Pain Stop: 10/05/19 09:51 Insulin Aspart (Novolog Flexpen) 0 units SC [facility]; Protocol Stop: 10/21/19 11:29 Last Admin: 09/22/19 20:57 Dose: 2 units Documented by: Latanoprost (Xalatan Oph) 1 drops OP BID [facility] Stop: 10/21/19 09:59 Last Admin: 09/22/19 20:52 Dose: Not Given Documented by: Levothyroxine Sodium (Synthroid) 100 mcg PO DAILYBB [facility] Stop: 10/21/19 10:29 Last Admin: 09/22/19 06:12 Dose: 100 mcg Documented by: Magnesium Hydroxide (Milk Of Magnesia) 30 ml PO Q6H PRN PRN Reason: Constipation Stop: 10/21/19 09:51 Metoclopramide HCl (Reglan) 10 mg IV Q6H PRN PRN Reason: Nausea And Vomiting Stop: 10/21/19 09:51 Metoprolol Succinate (Toprol Xl) 25 mg PO [facility] Stop: 10/21/19 10:29 Last Admin: 09/22/19 07:28 Dose: 25 mg Documented by: Miscellaneous (Carbohydrates For Hypoglycemia) 15 - 30 gm PO UD PRN PRN Reason: Hypoglycemia Treatment Stop: 10/21/19 10:29 Miscellaneous Information (Consult Glycemic Management Pharmacy) 1 ea N/A UD PRN PRN Reason: Consult Stop: 10/21/19 10:14 Multivitamins (Multivitamin Tab) 1 tab PO [facility] Stop: 10/21/19 10:29 Last Admin: 09/22/19 08:47 Dose: 1 tab Documented by: Naloxone HCl (Narcan) 0.1 mg IV Q5M PRN PRN Reason: Oversedation/Resp Depression Stop: 10/21/19 09:51 Ondansetron HCl (Zofran) 4 mg IV Q6H PRN PRN Reason: Nausea And Vomiting Stop: 10/21/19 09:51 Oxycodone HCl (Roxicodone Immediate Rel) 5 - 10 mg PO Q4H PRN PRN Reason: Pain Stop: 10/05/19 09:51 Propafenone HCl (Rythmol) 225 mg PO [facility] Stop: 10/21/19 10:29 Last Admin: 09/22/19 07:29 Dose: 225 mg Documented by: Rosuvastatin Calcium (Crestor) 5 mg PO [facility] Stop: 10/21/19 20:59 Last Admin: 09/22/19 20:55 Dose: 5 mg Documented by: Sennosides (Senokot) 17.2 mg PO [facility] Stop: 10/21/19 20:59 Last Admin: 09/22/19 20:55 Dose: 17.2 mg Documented by: PG Care Time/CCT Total # of Minutes Spent Total Time Spent with Patient: Total time spent is greater than 50% in coordination of care (as documented) at patient's floor/unit and/or counseling patient: Coding Level of Care Code 32286 Inpt Consult Level 3 Diagnoses HTN (hypertension) I10 Diabetes E11.9 History of atrial fibrillation Z86.79 Arthritis of right knee M17.11 History of total right knee replacement Z96.651
[2019-09-22] MEDS: CeleBREX 200 MG CAP PO SCH (19:36)
[2019-09-22] MEDS: ROSUVASTATIN CALCIUM 5 MG TAB PO SCH (20:55)
[2019-09-22] MEDS: SENNA 8.6 MG TAB PO SCH (20:55)
[2019-09-23] MEDS: OXYCODONE HCL IR 5 MG TAB (IMMEDIATE RELEASE) PO PRN ×3 (00:26→08:33)
[2019-09-23] MEDS: ACETAMINOPHEN 500 MG TAB PO SCH ×3 (05:30→21:20)
[2019-09-23] MEDS: LEVOTHYROXINE SODIUM 100 MCG TABLET PO SCH (05:30)
--- NOTE | 2019-09-23 06:48 | Orthopedic Progress Note ---
Date of Service September 23, 2019 Assessment & Plan (1) History of total right knee replacement: POD #2 s/p Right TKA pt/ot dvt proph with ELIS/SCD/ASA plan for d/c home with home health when stable will f/u with PCP in 1 week for recheck of BPs Subjective POD #2 s/p Right TKA Review of Systems Review of Systems: All systems reviewed & are unremarkable except as noted in HPI & below Constitutional: no fever and no chills Respiratory: no cough and no dyspnea Cardiovascular: no chest pain, no dyspnea and no orthopnea Gastrointestinal: no abdominal pain, no nausea and no vomiting Physical Exam Physical Exam: Vital Signs Temp 37.2 C 09/22/19 23:25 Pulse 73 09/22/19 23:25 Resp 18 09/22/19 23:25 BP 175/76 H 09/22/19 23:25 Pulse Ox 95 09/22/19 23:25 Intake & Output 09/22/19 09/22/19 09/23/19 06:59 18:59 06:59 Intake Total 2211.667 / 4650.00 0 460 / 835 375 / 835 Output Total 1475 / 2060 875 / 950 75 / 950 Balance 736.667 / 2590.000 -415 / -115 300 / -115 Intake: IV 1611.667 / 3090.00 0 Nss 1000ML 1,0 00 ml @ 100 mls/ 1611.667 / 1915.00 0 hr IV .Q10H SC H Rx#:[id number] Oral 600 / 960 460 / 835 375 / 835 Output: Urine 1225 / 1775 700 / 700 Drain Output 250 / 280 175 / 250 75 / 250 Right Knee Hem ovac 250 / 280 175 / 250 75 / 250 Constitutional: WD/WN, vitals as above no acute distress Musculoskeletal: Right leg: NVDI, calf SNT, negative tripp sign. DP palpable, able to wiggle toes/ankle movement without difficulty. dressing clean dry and intact. expected post-operative bruising noted. Results & Data ([facility]) Vital Signs (Past 12 Hours) Vital Signs Temp Pulse Resp BP Pulse Ox 09/22/19 23:25 37.2 C 73 18 175/76 H 95 Laboratory Results Laboratory Results WBC 15.42 K/uL (4.8-10.8) H 09/22/19 05:41 RBC 3.92 M/uL (4.2-5.4) L 09/22/19 05:41 Hgb 12.0 g/dL (12.0-16.0) 09/22/19 05:41 Hct 34.5 % (37-47) L 09/22/19 05:41 MCV 88.0 fL (80-100) 09/22/19 05:41 MCH 30.6 pg (25-34) 09/22/19 05:41 MCHC 34.8 g/dL (32-36) 09/22/19 05:41 RDW Std Deviation 42.1 fL (36.4-46.3) 09/22/19 05:41 RDW Coeff of Geni 13.2 % (11.5-14.5) 09/22/19 05:41 Plt Count 221 K/uL (130-400) 09/22/19 05:41 MPV 9.7 fL (7.4-10.4) 09/22/19 05:41 Immature Gran % (Auto) 0.1 % 09/16/19 14:32 Neut % (Auto) 57.6 % 09/16/19 14:32 Lymph % (Auto) 29.5 % 09/16/19 14:32 [place] % (Auto) 10.3 % 09/16/19 14:32 Eos % (Auto) 2.2 % 09/16/19 14:32 Baso % (Auto) 0.3 % 09/16/19 14:32 Immature Gran # (Auto) 0.01 K/uL (0.00-0.02) 09/16/19 14:32 Neut # (Auto) 4.14 K/uL (1.4-6.5) 09/16/19 14:32 Lymph # (Auto) 2.12 K/uL (1.2-3.4) 09/16/19 14:32 [place] # (Auto) 0.74 K/uL (0.11-0.59) H 09/16/19 14:32 Eos # (Auto) 0.16 K/uL (0-0.5) 09/16/19 14:32 Baso # (Auto) 0.02 K/uL (0-0.2) 09/16/19 14:32 PT 10.3 Seconds (9.0-12.0) 09/16/19 14:32 INR 1.0 (0.9-1.1) 09/16/19 14:32 APTT 25.1 Seconds (21.0-31.0) 09/16/19 14:32 PTT Ratio 0.9 09/16/19 14:32 Sodium 140 mmol/L (136-145) 09/22/19 05:41 Potassium 4.1 mmol/L (3.5-5.1) 09/22/19 05:41 Chloride 110 mmol/L (98-107) H 09/22/19 05:41 Carbon Dioxide 25 mmol/L (21-32) 09/22/19 05:41 Anion Gap 5.0 (3-11) 09/22/19 05:41 BUN 20 mg/dl (7-18) H 09/22/19 05:41 Creatinine 0.83 mg/dl (0.6-1.2) 09/22/19 05:41 Est Cr Clr Drug Dosing 64.6 ml/min 09/22/19 05:41 Est GFR ( Amer) 85.2 09/22/19 05:41 Est GFR (Non-Af Amer) 73.5 09/22/19 05:41 BUN/Creatinine Ratio 24.1 (10-20) H 09/22/19 05:41 Glucose 184 mg/dl (70-99) H 09/22/19 05:41 POC Glucose 172 mg/dl (70-99) H 09/22/19 20:42 Estimat Average Glucose 128 mg/dl 09/16/19 14:32 Hemoglobin A1c 6.1 % (4.5-5.6) H 09/16/19 14:32 Calcium 8.8 mg/dl (8.5-10.1) 09/22/19 05:41 Albumin 3.8 gm/dl (3.4-5.0) 09/16/19 14:32 Urine Color Yellow 09/16/19 Unknown Urine Appearance Clear (Clear) 09/16/19 Unknown Urine pH 5.0 (4.5-7.5) 09/16/19 Unknown Ur Specific [place] 1.013 (1.000-1.030) 09/16/19 Unknown Urine Protein Negative (Negative) 09/16/19 Unknown Urine Glucose (UA) Negative (Negative) 09/16/19 Unknown Urine Ketones Negative (Negative) 09/16/19 Unknown Urine Blood Negative (Negative) 09/16/19 Unknown Urine Nitrite Negative (Negative) 09/16/19 Unknown Urine Bilirubin Negative (Negative) 09/16/19 Unknown Urine Urobilinogen Negative (Negative) 09/16/19 Unknown Ur Leukocyte Esterase Negative (Negative) 09/16/19 Unknown Hepatitis C Ab Screen Neg (Neg) 09/22/19 05:41 Blood Type B Negative 09/16/19 14:32 Antibody Screen NEGATIVE 09/16/19 14:32
[2019-09-23] MEDS: CeleBREX 200 MG CAP PO SCH (08:28)
[2019-09-23] MEDS: DOCUSATE SODIUM 100 MG CAP PO SCH ×2 (08:33→21:19)
[2019-09-23] MEDS: ASPIRIN 81 MG ECTAB PO SCH ×2 (08:33→21:20)
[2019-09-23] MEDS: MULTIVITAMIN TAB PO SCH (08:33)
[2019-09-23] MEDS: METOPROLOL SUCC 25MG EXT REL TAB PO SCH (08:33)
[2019-09-23] MEDS: PROPAFENONE HCL 150 MG TABLET PO SCH (08:34)
[2019-09-23] MEDS: CARBIDOPA/LEVODOPA 25/100MG EXT REL TAB PO SCH ×2 (08:34→21:19)
[2019-09-23] MEDS: GABAPENTIN 100 MG CAP PO SCH ×2 (08:34→21:20)
[2019-09-23] MEDS: LATANOPROST 0.005% OP SOLN 2.5 ML BTL OP SCH ×2 (08:34→21:20)
[2019-09-23] MEDS: INSULIN ASPART 100 UNITS/ML 3 ML PEN SC SCH ×4 (08:38→21:23)
[2019-09-23] MEDS ORDERED: LANTUS PER UNIT CHARGE SQ ONE (09:30)
--- NOTE | 2019-09-23 11:22 | Hospitalist Progress Note ---
Date of Service September 23, 2019 Assessment & Plan (1) HTN (hypertension): continue Metoprolol typically pressures are better controlled certainly pain could be contributing use Hydralazine PRN also, Celebrex has given her high pressures in the past, will discontinue would not add any new medications at this time follow up with PCP in the office for BP check (2) Diabetes: continue Novolog SS diabetic diet resume home regimen on discharge monitor for hypoglycemia, no episodes (3) History of atrial fibrillation: continue metoprolol and propafenone regular rhythm on exam (4) Arthritis of right knee: s/p right TKA (5) History of total right knee replacement: pain control, DVT prophylaxis activity and d/c planning per ortho Hb and Cr stable yesterday hope for d/c tomorrow if feeling less nauseated (6) Vomiting: most likely due to Oxycodone, similar reaction in the past will stop Oxy, try Ultram use Zofran PRN look for improvement tomorrow Subjective patient feeling sick to her stomach this morning, vomited once she reports that she was doing well up until last night when pain in knee got worse she took an Oxycodone tablet and the pain was better but made her nauseated she recalls having a similar reaction in the past to narcotics also, reviewed her meds, was on Celebrex, she says that this was stopped in the past because it raised BP discussed with ortho, we will stop Oxy and Celebrex and try Ultram keep her here another night to look for improvement in symptoms Review of Systems Review of Systems: All systems reviewed & are unremarkable except as noted in HPI & below Gastrointestinal: + nausea and + vomiting; no abdominal pain, no constipation and no diarrhea/loose stools Musculoskeletal: + joint pain (Right knee) Physical Exam Constitutional: WD/WN, vitals as above Eyes: PERRL, conjunctivae normal, anicteric sclerae ENMT: external ear and nose normal, oropharynx normal Neck: trachea midline, no thyromegaly Respiratory: normal respiratory effort, lungs clear to auscultation Cardiovascular: RRR, no murmur, no edema Gastrointestinal (Abdomen): normal bowel sounds, soft, nontender, no hepatosplenomegaly Musculoskeletal: Head/Neck/Chest: normocephalic and head atraumatic Extremities: + limited ROM of extremities (right knee) and strength 5/5 throughout; + extremities abnormal to inspection (right knee swollen, tender, wrapped) Skin: no rashes, warm and dry Neurologic: patellar DTR's 2+ bilat, sensation intact and PERRL, EOMI, accommodation nl, no face palsy, no dysarthria Psychiatric: A+Ox3, euthymic affect Lymphatic: no cervical or axillary lymphadenopathy Results & Data ([facility]) Vital Signs (Past 12 Hours) Vital Signs Temp Pulse Pulse Resp BP Pulse Ox 09/23/19 07:20 36.7 C 67 19 122/88 95 09/22/19 23:25 37.2 C 73 18 175/76 H 95 Laboratory Results Laboratory Results - last 24 hr 09/22/19 09/22/19 09/22/19 12:12 16:58 20:42 POC Glucose 207 H 136 H 172 H 09/23/19 08:31 POC Glucose 172 H Medications Administered Current Inpatient Medications Acetaminophen (Tylenol) 1,000 mg PO Q8 [facility] Stop: 10/21/19 13:59 Last Admin: 09/23/19 05:30 Dose: 1,000 mg Documented by: Aspirin (Ecotrin Ectab) 81 mg PO BID [facility] Stop: 10/21/19 20:59 Last Admin: 09/23/19 08:33 Dose: 81 mg Documented by: Bisacodyl (Dulcolax) 10 mg UT DAILY PRN PRN Reason: Constipation Stop: 10/21/19 09:51 Carbidopa/Levodopa (Sinement Cr 25/100mg) 1 tab PO BID [facility] Stop: 10/21/19 09:59 Last Admin: 09/23/19 08:34 Dose: 1 tab Documented by: Dextrose (Dextrose 50%) 25 - 50 ml IV UD PRN; Protocol PRN Reason: Hypoglycemia Protocol Stop: 10/21/19 10:29 Diphenhydramine HCl (Benadryl Capsule) 25 mg PO Q8H PRN PRN Reason: Itching Stop: 10/21/19 09:51 Docusate Sodium (Colace) 100 mg PO BID [facility] Stop: 10/21/19 20:59 Last Admin: 09/23/19 08:33 Dose: 100 mg Documented by: Gabapentin (Neurontin) 200 mg PO BID [facility] Stop: 10/21/19 09:59 Last Admin: 09/23/19 08:34 Dose: 200 mg Documented by: Glucagon (Glucagen) 1 mg IM UD PRN; Protocol PRN Reason: Hypoglycemia Protocol Stop: 10/21/19 10:29 Glucose (Glucose 40%) 15 - 30 gm PO UD PRN; Protocol PRN Reason: Hypoglycemia Protocol Stop: 10/21/19 10:29 Glucose (Dex4 Glucose) 4 - 8 tabs PO UD PRN; Protocol PRN Reason: Hypoglycemia Protocol Stop: 10/21/19 10:29 Hydralazine HCl (Hydralazine Hcl) 10 mg IV Q6 PRN PRN Reason: Blood Pressure - High Stop: 10/22/19 11:15 Hydromorphone HCl (Dilaudid) 1 mg IV Q4H PRN PRN Reason: Pain Stop: 10/05/19 09:51 Insulin Aspart (Novolog Flexpen) 0 units SC [facility]; Protocol Stop: 10/21/19 11:29 Last Admin: 09/23/19 08:38 Dose: 14 units Documented by: Latanoprost (Xalatan Oph) 1 drops OP BID [facility] Stop: 10/21/19 09:59 Last Admin: 09/23/19 08:34 Dose: 1 drops Documented by: Levothyroxine Sodium (Synthroid) 100 mcg PO DAILYBB [facility] Stop: 10/21/19 10:29 Last Admin: 09/23/19 05:30 Dose: 100 mcg Documented by: Magnesium Hydroxide (Milk Of Magnesia) 30 ml PO Q6H PRN PRN Reason: Constipation Stop: 10/21/19 09:51 Metoclopramide HCl (Reglan) 10 mg IV Q6H PRN PRN Reason: Nausea And Vomiting Stop: 10/21/19 09:51 Last Admin: 09/23/19 10:50 Dose: 10 mg Documented by: [facility]l) [facility] [place]: 10/21/19 10:29 Last Admin: 09/23/19 08:33 Dose: 25 mg Documented by: Miscellaneous (Carbohydrates For Hypoglycemia) 15 - 30 gm PO UD PRN PRN Reason: Hypoglycemia Treatment Stop: 10/21/19 10:29 Miscellaneous Information (Consult Glycemic Management Pharmacy) 1 ea N/A UD PRN PRN Reason: Consult Stop: 10/21/19 10:14 Multivitamins (Multivitamin Tab) 1 tab PO [facility] Stop: 10/21/19 10:29 Last Admin: 09/23/19 08:33 Dose: 1 tab Documented by: Naloxone HCl (Narcan) 0.1 mg IV Q5M PRN PRN Reason: Oversedation/Resp Depression Stop: 10/21/19 09:51 Ondansetron HCl (Zofran) 4 mg IV Q6H PRN PRN Reason: Nausea And Vomiting Stop: 10/21/19 09:51 Last Admin: 09/23/19 09:38 Dose: 4 mg Documented by: Propafenone HCl (Rythmol) [facility] Stop: 10/21/19 10:29 Last Admin: 09/23/19 08:34 Dose: 225 mg Documented by: Rosuvastatin Calcium (Crestor) 5 mg PO [facility] Stop: 10/21/19 20:59 Last Admin: 09/22/19 20:55 Dose: 5 mg Documented by: Sennosides (Senokot) 17.2 mg PO [facility] Stop: 10/21/19 20:59 Last Admin: 09/22/19 20:55 Dose: 17.2 mg Documented by: Tramadol HCl (Ultram) 50 mg PO Q4H PRN PRN Reason: Pain Stop: 10/23/19 10:51 PG Care Time/CCT Total # of Minutes Spent Total Time Spent with Patient: Total time spent is greater than 50% in coordination of care (as documented) at patient's floor/unit and/or counseling patient: Coding Level of Care Code 60710 Subseq Hosp Care Lvl 2 Diagnoses HTN (hypertension) I10 Diabetes E11.9 History of atrial fibrillation Z86.79 Arthritis of right knee M17.11 History of total right knee replacement Z96.651 Vomiting R11.10
[2019-09-23] MEDS: TRAMADOL HCL 50 MG TABLET PO PRN ×2 (12:56→19:26)
--- NOTE | 2019-09-23 13:11 | Pharmacy Report ---
Pharmacy Glycemic Short Note 2 - Date of Service September 23, 2019 - Glycemic Short BSG Results (Last 24 hours): 09/22/19 09/22/19 09/23/19 16:58 20:42 08:31 POC Glucose 136 H 172 H 172 H 09/23/19 12:36 POC Glucose 162 H OUTPATIENT ANTIDIABETIC REGIMEN: * Trulicity 1.5 mg qweekly on Fridays * A1c = 6.1 % 09/16/19 Risk Factors for Insulin Resistance: * Steroids: DXM 4 mg iv, DXM 8 mg po x 1 on 09/21 * Recent Surgery: POD 2 * Diet: T2DM - Assessment & Plan Assessment & Plan: ASSESSMENT: 09/23/19 * Blood sugars just above goal range, will give one time dose of Lantus and tighten CR at this time. 09/21/19 * 64 year old female now s/p knee arthroplasty. Type 2 diabetic managed on Trulicity at home * Pharmacy consulted for glycemic management. Patient did receive steroids preop/intraop therefore expect steroid induced hyperglycemia * Will utilize basal/bolus insulin postop for glycemic control * Lunch BSG elevated at 284 mg/dL - after discussion with nurse patient had just recently eaten breakfast therefore level falsely elevated / patient did eat about 26 gm of carbs therefore adjusted CF slightly to make up for missed insulin PLAN FOR INPATIENT GLYCEMIC CONTROL: * Hold outpatient diabetes medications * Basal insulin * Lantus 10 units SQ x 1 dose this morning * Bolus insulin * NovoLog per scale ACHS or Q6hrs while NPO * Goal Range: Low 110 mg/dL - High 140 mg/dL * Correction Factor: 20 mg/dL/unit * TIGHTEN: Nutritional / Prandial insulin per carb ratio of 1 unit per 6 grams CHO consumed PLAN FOR DISCHARGE: * A1c 6.1%, continue Trulicity.
[2019-09-23] MEDS: SENNA 8.6 MG TAB PO SCH (21:20)
[2019-09-23] MEDS: ROSUVASTATIN CALCIUM 5 MG TAB PO SCH (21:20)
[2019-09-24] MEDS: ACETAMINOPHEN 500 MG TAB PO SCH (05:16)
[2019-09-24] MEDS: LEVOTHYROXINE SODIUM 100 MCG TABLET PO SCH (05:16)
[2019-09-24] MEDS ORDERED: TRAMADOL HCL 50 MG TABLET PO PRN (07:21)
[2019-09-24] MEDS: GABAPENTIN 100 MG CAP PO SCH (07:57)
[2019-09-24] MEDS: MULTIVITAMIN TAB PO SCH (07:57)
[2019-09-24] MEDS: METOPROLOL SUCC 25MG EXT REL TAB PO SCH (07:57)
[2019-09-24] MEDS: ASPIRIN 81 MG ECTAB PO SCH (07:57)
[2019-09-24] MEDS: CARBIDOPA/LEVODOPA 25/100MG EXT REL TAB PO SCH (07:57)
[2019-09-24] MEDS: DOCUSATE SODIUM 100 MG CAP PO SCH (07:57)
[2019-09-24] MEDS: PROPAFENONE HCL 150 MG TABLET PO SCH (07:57)
[2019-09-24] MEDS: LATANOPROST 0.005% OP SOLN 2.5 ML BTL OP SCH (07:58)
[2019-09-24] MEDS: INSULIN ASPART 100 UNITS/ML 3 ML PEN SC SCH (08:01)
--- NOTE | 2019-09-24 08:02 | Orthopedic Progress Note ---
Date of Service September 24, 2019 Assessment & Plan (1) History of total right knee replacement: POD #3 s/p Right TKA Nausea resolving with change in pain medication. pt/ot dvt proph with ELIS/SCD/ASA plan for d/c home with home health will f/u with PCP in 1 week for recheck of BPs Subjective Postop day 3 status post right total knee arthroplasty. Patient is currently lying in bed watching TV. She was having difficulty with nausea yesterday patient states that she is feeling much better since switching her pain medications. She states that her nausea has essentially resolved and she is feeling better. She is having some mild pain in the operative knee this morning but is otherwise feeling well. She states that she feels that the pain medication she is taking is not covering all of her pain quite like the previous. We discussed that she was only taking 1 tablet at that time of which I will switch to 1 or 2 tablets every 4 hours as needed pain. She denies any shortness of breath, chest pain, lightheadedness. Blood pressures have been somewhat elevated off and on. This is been managed by [facility]. Physical Exam Physical Exam: Incision is clean, dry, and intact. She has mild swelling noted consistent with surgery. Calves are soft and nontender. Neurovascular is intact. Toes are mobile. Results & Data ([facility]) Vital Signs (Past 12 Hours) Vital Signs Temp Pulse Resp BP Pulse Ox 09/24/19 06:37 37.3 C 79 15 167/81 H 94 09/23/19 23:01 37.3 C 82 18 174/73 H 93
[2019-09-24] MEDS ORDERED: LANTUS PER UNIT CHARGE SQ ONE (09:00)
--- NOTE | 2019-09-25 19:23 | Discharge Summary ---
Date of Service date of discharge: September 24, 2019 date of admission: 09-21-19 Admission HPI Per Admitting Provider Ms Bowden is a 64 year old female who complains of Right knee pain, presents for pre-op evaluation prior to a Right total knee replacement by dr Gomez at [facility]. She complains of pain, crepitus, decreased range of motion, instability and stiffness in the Right knee. she states that the symptoms have been chronic and non-traumatic. she states that the symptoms occur constantly with intermittent worsening. Currently the patient states that the symptoms are moderate-severe. The pain is described as aching, sharp and throbbing. The symptoms occur continuously. The symptoms are aggravated by ascending stairs, daily activities, first steps while awake walking. Prior NSAIDs include IBU and Aleve. She has been treated with previous cortisone injections and visco injections in the past without much relief, most recent was Euflexxa in March 2019. Principal Diagnosis right knee osteoarthritis Discharge Exam Vital Signs Temp 37.3 C 09/24/19 08:09 Pulse 67 09/24/19 08:09 Resp 15 09/24/19 08:09 BP 167/81 H 09/24/19 08:09 Pulse Ox 94 09/24/19 08:09 Musculoskeletal right knee: NVDI, calf SNT, negative tripp sign. DP palpable, able to wiggle toes/ankle movement without difficulty. Prineo dressing clean dry and intact. expected post-operative bruising noted. Discharge Data Allergies Allergy/AdvReac Type Severity Reaction Status Date / Time Qlftoee-Azb-Awh Reductase AdvReac Unknown Joint Pain Verified 09/21/19 05:33 Inhibitor Consultations 09/21/19 09:52 Consult Case Management - Discharge Planning Routine 09/22/19 09:56 Consult Hospitalist Routine Procedures Performed Operation Date: 09/21/19 07:00 Actual Procedures p Right Total Knee Arthroplasty, Cemented(Right) - Link Gomez DO Ordered Studies 09/21/19 05:00 US - OR guided needle placemen Routine Hospital Course (1) History of total right knee replacement: POD #3 s/p Right TKA Nausea resolving with change in pain medication. pt/ot dvt proph with ELIS/SCD/ASA plan for d/c home with home health will f/u with PCP in 1 week for recheck of BPs Total Time Total Time Spent Total Time Spent (In Minutes): 20 Total Time Includes: Examination of the Patient, Discharge Planning and Medication Reconciliation Discharge Plan Discharge Items Patient Disposition: Home - Home Health Services Reason For Visit: Right Knee Osteoarthritis Discharge Diagnosis: Right Total knee Replacement Condition on Discharge: Good Activity: Per Instructions section Weightbearing: Full weightbearing and Right weightbearing Non-emergency contact: Surgeon Call non-emergency contact if: you have any medication questions, your temperature is above 101, your wound has increased redness, your wound has increased drainage and your wound pain has increased Follow-up/Referrals: Donal Larson [Primary Care Provider] - (Patient will make follow up appt. with PCP for blood pressure check in 1 week.) Diet: Regular Addtl Attending Provider Instructions: ACTIVITY RECOMMENDATIONS: SELF CARE INSTRUCTIONS AFTER TOTAL KNEE REPLACEMENT A. You may need to continue a physical therapy program after discharge from the hospital. There are several options available to you. Your doctor will assist you in selecting the best one for you. 1. An out-patient facility 2 to 3 times a week for therapy or home therapy. 2. Continue working on all exercises taught to you in the hospital. Your goals should be to increase bending of your knee to 90 degrees and beyond and to fully straighten your knee. B. You may progress at your own pace from walking with a walker or crutches to a cane; then to no assistive devices. C. Make walking a part of your daily routine. Be up as much as comfortable with rest periods throughout the day. Rest with leg elevation is very important. Use the ice wrap frequently for the first 3-4 weeks. D. There are no restrictions on activities. You may ride in a car, shop, participate in dance choreographer and all social activities. E. Wear the long elastic stockings (ELIS hose) 20 hours a day for 2 weeks after surgery. They can be removed several times a day for laundering and for a bath. F. You may shower, no tub baths until cleared by your doctor. SPECIAL CARE INSTRUCTIONS: VERY IMPORTANT TO READ AND REVIEW A. There are a few signs you need to watch for after you are home. Call [facility] if you notice any of the followin. Increased severe knee pain. Some pain is expected especially when you exercise. 2. Increased swelling in your leg or knee; pain or swelling of the calf muscle in either lower leg. 3. Any fluid drainage from the incision. 4. Shortness of breath or chest pain. B. Please call [facility] at if you have any concerns or questions about your operation or recovery. The doctor or his nurse will return your call promptly. C. You must take antibiotics before dental work, bladder, bowel or other surg bartolo. Your doctor will provide you with a permanent care to carry describing this precaution. IMPORTANT: * REMEMBER TO TAKE ASPIRIN, 81 MG, TWICE DAILY FOR 4 WEEKS UNLESS OTHERWISE DIRECTED. THIS IS YOUR BLOOD THINNER. * HIGH RISK PATIENTS MAY BE PRESCRIBED A STRONGER BLOOD THINNER. THIS WILL BE PROVIDED AT DISCHARGE. * CALL IF INCREASED PAIN, REDNESS, DRAINAGE OR FEVER GREATER THAT 101. * WEAR ELIS HOSE 20 HOURS PER DAY FOR 2 WEEKS. * DERMABOND Prineo- This is a mesh tape dressing that is covered with glue. It should remain in place until the incision is properly healed, usually 10-14 days. This dressing is designed to naturally slough off. You may trim the excess mesh tape as it peels off. Incision may be briefly wet in a shower. Dry immediately by blotting with a clean, dry towel. Do not bath or swim until instructed by your doctor. Do not scratch, rub, or pick at the dressing. Do not apply any topical ointments or lotions until dressing is completely removed and/or instructed by your doctor. There may be a small piece of suture material at one end of your incision. Do not pull or trim this. If it is bothersome or catching on clothing, you may cover it with a band-aid. IF INCISION IS LEAKING THROUGH DRESSING, CALL THE OFFICE . FOLLOW UP VISIT: If appointment is not already scheduled: Please call [facility] to make a follow-up appointment for 2 weeks after your surgery at . Please follow-up with your primary care physician for blood pressure checks in 1 week. Pending Studies at Discharge: No Stand-Alone Forms: My [facility] CEDU, Opioid Pain Management, Smoking Cessation Medications and DC Order Prescriptions: New aspirin [Ecotrin Low Strength] 81 mg Tablet,Delayed Release (Dr/Ec) 81 mg PO BID 30 Days Qty: 60 RF: 0 acetaminophen 500 mg Tablet 1,000 mg PO Q8 14 Days Qty: 84 RF: 0 docusate sodium 100 mg Capsule 100 mg PO BID 10 Days Qty: 20 RF: 0 cefadroxil 500 mg capsule 500 mg PO BID 10 Days Qty: 20 RF: 0 ondansetron HCl 4 mg tablet 4 mg PO Q6H Qty: 8 RF: 0 Continued latanoprost 0.005 % Drops 1 drp OPHTHALMIC (EYE) BID RF: 0 carbidopa-levodopa 25-100 mg Tablet Extended Release 1 tab PO BID RF: 0 lamotrigine 25 mg Tablet 50 mg PO QAM RF: 0 propafenone 225 mg Tablet 225 mg PO QAM RF: 0 gabapentin 100 mg Capsule 200 mg PO BID RF: 0 metoprolol succinate 25 mg Tablet Extended Release 24 Hr 25 mg PO QAM RF: 0 rosuvastatin 5 mg Tablet 5 mg PO HS RF: 0 levothyroxine 100 mcg Capsule 100 mcg PO QAM RF: 0 Trulicity 1.5 mg/0.5 mL Pen Injector 1.5 mg SUBCUT WK RF: 0 Discontinued meloxicam [Mobic] 15 mg Tablet 15 mg PO UD PRN (Reason: Pain) RF: 0 aspirin [Aspir-81] 81 mg Tablet,Delayed Release (Dr/Ec) 81 mg PO QAM RF: 0 coenzyme Q10 [CoQ-10] 100 mg Capsule 100 mg PO UD PRN (Reason: WHEN TAKE STATING DRUG) RF: 0 Discharge Orders: Discharge Order (Routine); Ordered 09/24/19 Ordered By: Humza Dale/Other Patient Handouts: Surgery Prevent DVT After, Hyperglycemia, Diabetes Type 2 Coping, ED Stockings Elis Admission Data Admit Date/Time: 09/21/19 08:55 Attending Provider: Link Gomez Admit Provider: Link Gomez Primary Care Provider: Donal Larson Other Providers: Ramy Maza Other Interventions: Discharge Summary Assessment (RN) Last Done: 09/24/19 08:09 DC Date/Time DO NOT enter until pt leaves facility: 09/24/19 11:31
== END 2019-09-24 11:31 | disposition home health service (06) | DRG 470 ==
LOC: ASU 05:02 → 3E 08:55